=== PATIENT | female | born 1945 | race Caucasian/White ===

== ENCOUNTER 2016-05-31 05:56 | Inpatient (IN) | payer OTHER, BC ==
[2016-05-31] MEDS ORDERED: CEFAZOLIN 2 GM/DEXTR 100 ML IV ONE (06:00)
[2016-05-31] MEDS ORDERED: ACETAMINOPHEN 325 MG TAB PO ONE (06:00)
[2016-05-31] MEDS ORDERED: TRANEXAMIC ACID 3,000 MG in NS 50 ML IRR ONE (06:00)
[2016-05-31] MEDS ORDERED: ROPI/epiNEPH/KETOROLAC JOINT COCKTAIL IU ONE (06:00)
[2016-05-31] MEDS ORDERED: DEXAMETHASONE 4 MG/ML VIAL IVP ONE (06:00)
[2016-05-31] MEDS ORDERED: FAMOTIDINE 20 MG TAB PO ONE (06:00)
[2016-05-31] MEDS ORDERED: CHLORHEXIDINE GLUC HIBICLENS 118 ML BTL TP ONE (06:00)
[2016-05-31] MEDS ORDERED: TRANEXAMIC ACID 3,000 MG/50 ML BAG IRR ONE (06:32)
[2016-05-31] MEDS ORDERED: SKIN ADHESIVE (DERMABOND) 1 EACH TP ONE ×2 (06:32→07:47)
[2016-05-31] MEDS ORDERED: LIDOCAINE 1% 5 ML SDV ONE (06:44)
[2016-05-31] MEDS ORDERED: LIDOCAINE 1% 5 ML SDV ID PRN (06:55)
[2016-05-31] MEDS ORDERED: LR 1,000 ML IV ONE (06:55)
[2016-05-31] MEDS ORDERED: MIDAZOLAM 2 MG/2 ML VIAL ONE (07:01)
[2016-05-31] MEDS ORDERED: PROPOFOL/EMULSION 500 MG/50 ML BOTTLE IV ONE (07:15)
[2016-05-31] MEDS ORDERED: POLYETHYLENE GLYCOL 3350 17 GM PKT PO PRN (08:09)
[2016-05-31] MEDS ORDERED: METOCLOPRAMIDE 10 MG/2 ML VIAL IVP PRN (08:09)
[2016-05-31] MEDS ORDERED: ONDANSETRON 4 MG/2 ML VIAL IVP PRN (08:09)
[2016-05-31] MEDS ORDERED: PROMETHAZINE HCL 25 MG/ML INJ IVP PRN (08:09)
[2016-05-31] MEDS ORDERED: diphenhydrAMINE 25 MG CAP PO PRN (08:09)
[2016-05-31] MEDS ORDERED: PHARMACY PAIN CONSULT 1 EA MISC PRN (08:09)
[2016-05-31] MEDS ORDERED: LACTULOSE 20 GM/30 ML UDCUP PO PRN (08:09)
[2016-05-31] MEDS ORDERED: DIPHENOXYLATE/ATROPINE LOMOTIL 1 TAB PO PRN (08:09)
[2016-05-31] MEDS ORDERED: MAGNESIUM HYDROXIDE 30 ML UDCUP PO PRN (08:09)
[2016-05-31] MEDS ORDERED: TEMAZEPAM 15 MG CAP PO PRN (08:09)
[2016-05-31] MEDS ORDERED: BISACODYL 10 MG SUPP PR PRN (08:09)
[2016-05-31] MEDS ORDERED: PROMETHAZINE HCL 25 MG SUPPR PR PRN (08:09)
[2016-05-31] MEDS ORDERED: LIDOCAINE 2% 5 ML SDV ONE (08:14)
--- NOTE | 2016-05-31 08:32 | POSTOPPROG ---
Post Op Note Date of Operation: 05/31/16 Surgeon: Ezra Howe Felled Seam Operator: hema howe Anesthesiologist: dr. maxwell Anesthesia: Spinal Pre-op Diagnosis: left hip OA Post-op Diagnosis: same Indication: left hip pain due to OA that failed conservative measures Procedure: L JANNETH ant approach Findings: severe hip OA Inf/Abcess present in the surg proc area at time of surgery?: No EBL: 100-500
--- NOTE | 2016-05-31 09:21 | DX ---
Fluoroscopy Provided for Left Hip Surgery 8:15 a.m. Indication: Left total hip arthroplasty Fluoroscopy time: 2.1 seconds. Dose: 0.24 mGy. Technique: Single intraoperative AP spot view. Findings: A left total hip arthroplasty jig is well seated. A sponge overlies the greater trochanter. Impression: Fluoroscopy provided for left total hip arthroplasty.
--- NOTE | 2016-05-31 09:22 | DX ---
Portable Pelvis May 31, 2016 8:55 a.m. Indication: Left total hip arthroplasty. Comparison: Portable pelvis dated January 05, 2016. Findings: A new left total hip arthroplasty is anatomically aligned and well seated. No perihardware fracture or lucency. Expected subcutaneous gas. A right total hip arthroplasty remains well seated. Impression: Good alignment of new left total hip arthroplasty.
[2016-05-31] MEDS: ONDANSETRON DISINTEGRATING 4 MG TAB PO PRN ×2 (11:22→17:37)
[2016-05-31] MEDS: ACETAMINOPHEN 325 MG TAB PO SCH ×3 (11:22→23:53)
[2016-05-31] MEDS: LR 1,000 ML IV SCH ×2 (11:23→23:57)
[2016-05-31] MEDS: SENNOSIDES/DOCUSATE SODIUM TAB PO SCH ×2 (11:45→20:33)
[2016-05-31] MEDS: CYCLOBENZAPRINE 10 MG TAB PO PRN ×2 (11:58→23:52)
[2016-05-31] MEDS: oxyCODONE IR 5 MG TAB PO PRN ×2 (11:58→17:38)
[2016-05-31] MEDS: ceFAZolin 2 GM in D5W 100 ML IV SCH ×2 (13:37→21:51)
[2016-05-31] MEDS ORDERED: ceFAZolin 2 GM/DEXTROSE 100 ML IV SCH (14:00)
--- NOTE | 2016-05-31 19:40 | GOP ---
[f rep st] OPERATIVE REPORT DATE OF OPERATION: 05/31/2016 SURGEON: Jose Olivas MD INTERN: Amber Olivas PA-C ANESTHESIA: Spinal. PREOPERATIVE DIAGNOSIS: Left hip osteoarthritis. POSTOPERATIVE DIAGNOSIS: Left hip osteoarthritis. PROCEDURE PERFORMED: Left total hip arthroplasty with x-ray. FINDINGS: ESTIMATED BLOOD LOSS: 200 cc. INDICATIONS: The patient has progressively worsening arthritis of the hip which has failed medical m anagement. The patient understands the treatment options including continued non-operative care and has selected surgical intervention. The patient has decided to undergo total hip arthroplasty via th e direct anterior approach, understanding the risks of the procedure including, but not limited to, n eurovascular injury, infection, persistent pain, component wear and loosening, deep venous thrombosis , pulmonary embolism, limb length inequality, hip instability (including dislocation), and intra-oper ative fractures. DESCRIPTION OF PROCEDURE: After proper identification of the patient including verification and dottie ing the surgical site, the patient was brought to the operating room and placed in the supine positio n. All bony prominences were well padded. Anesthesia was induced without complication and intraveno us prophylactic antibiotics were administered prior to skin incision. The operative leg was placed in the Trumpf Arch table extension and the well leg in a Yellofin leg ho lder. The patient was prepped and draped in the usual sterile fashion. The C-arm was draped for int ra-operative fluoroscopy to check acetabular position, femoral component position including leg lengt h and femoral offset. Attention was then drawn to surgical exposure of the hip. An incision was made with a #10 Bard Tomasa r blade starting 3 cm lateral and 3 cm distal to the anterior superior iliac spine measuring 8-10 cm and coursing distally toward the greater trochanter. The skin and subcutaneous tissues were divided sharply down to the fascia irene. The fascia irene was incised in line with the skin incision exposing the underlying tensor fascia irene muscle. The muscle was bluntly elevated from the fascia and the f irst extracapsular Cobra retractor was placed laterally at the junction of the superior femoral neck and greater trochanter. The lateral femoral circumflex vessels were identified, cauterized, and divi ded with the Aquamantys bipolar cautery. The deep investing fascia of the TFL was divided to allow p doris mobilization of the muscle preventing damage during the retraction. The reflected head of the rectus femoris muscle was elevated off the anterior hip capsule and a medial Cobra retractor was plac ed just proximal to the lesser trochanter. The anterior capsulotomy was made sharply from the superolateral acetabulum to the saddle junction of the superior femoral neck and greater trochanter, then coursing inferomedial towards the lesser troc hanter. The retractors were then placed in the intracapsular position for femoral neck osteotomy. C orresponding to pre-operative templating, the osteotomy was made with the oscillating saw carefully p rotecting the greater trochanter and soft tissues. The femoral head was removed from the acetabulum with a corkscrew and confirmed to be severely arthritic with exposed bone, deformity and osteophytes. Similar findings were confirmed in the acetabulum. The Arch table extension was then placed in 40 degrees external rotation. Attention was then drawn to the acetabular preparation. After placement of the anterior and posterio r Cobra retractors outside the labrum and intracapsular, the circumferential labrum was removed sharp ly. The foveal contents were then removed and hemostasis obtained with cautery. The first reamer selected was sized using the removed femoral head. Reaming began with medialization and then commenced in 2 mm increments at 45 degrees of abduction and 15 degrees of anteversion using fluoroscopic navigation. Reaming ceased 1 mm less than the definitive acetabular component and pranav esponded to the pre-operative templating. The final acetabular component was inserted using fluorosc opy to achieve proper orientation yielding excellent purchase and stability in the acetabulum. The f inal acetabular liner was then placed and its seating confirmed. Attention was then turned to the femur. The Arch table extension was placed in extension and adducti on, delivering the osteotomized femoral neck into the wound. A 2-pronged femoral elevator was placed at the calcar and another at the tip of the greater trochanter. The posterolateral capsule was rele ased with cautery allowing mobilization of the femur lateral and anterior for preparation. The exter nal rotators were visualized and preserved. A curette and rongeur were used to open the starting poi nt for broaching. Serial broaching started with the #0 broach and ended with the broach that exhibit ed excellent fit in the proximal femur. A change in pitch during mallet strikes was accompanied by t he inability to advance the broach any further. The trial reduction was performed and fluoroscopic n avigation was utilized to check limb length. Adjustments were made to equalize limb length according ly. After the final trials were accepted they were removed and the wound was copiously lavaged. The femo ral component was seated to the same depth as the final broach and the femoral head was impacted onto the clean trunnion. The hip was then reduced for the final time and once more fluoroscopy was used to check that limb length equality was achieved. The wound was irrigated and closed in layers, the fascia irene with 2-0 Quill, the subcutaneous tissue with 2-0 Quill, and the skin with Dermabond. Sterile dressings were applied. Final sharps and spon ge counts were accurate. The patient was then transferred to a hospital bed and brought to the [facility] room in stable condition. IMPLANTS: Accolade II size 5 x 127, acetabular component 52 mm Titanium, the liner is a Trident X3 3 6 mm, the head is a Biolox Delta 36 mm -2.5. /[id number]/MODL
[2016-05-31] MEDS: FAMOTIDINE 20 MG TAB PO SCH (20:33)
[2016-05-31] MEDS: ASPIRIN 325 MG TAB PO SCH (20:33)
[2016-06-01] MEDS: ACETAMINOPHEN 325 MG TAB PO SCH (04:56)
[2016-06-01 05:31] LABS: HEMATOCRIT 33.4 % (38.0-47.0); HEMOGLOBIN 10.8 g/dL (12.6-16.3)
[2016-06-01 07:43] VITALS: BP 98/51; PULSE 69; RESP 16; TEMP 98; O2SAT 94
[2016-06-01] MEDS: ASPIRIN 325 MG TAB PO SCH (09:36)
[2016-06-01] MEDS: FAMOTIDINE 20 MG TAB PO SCH (09:36)
[2016-06-01] MEDS: SENNOSIDES/DOCUSATE SODIUM TAB PO SCH (09:36)
--- NOTE | 2016-06-01 09:44 | SOAPPROG ---
SOAP Progress Note Assessment/Plan: Assessment: Patient is doing well POD 1 s/p L JNANETH 1.Pain management: pain is well controlled on oral pain meds 2.Anemia: level is expected initially postop. Asymptomatic. Cont to monitor for symptoms 3.VTE ppx: recommend aspirin 325mg daily. Cont ADIS greenberg and SCD 4. d/c planning: d/c to home today pending release from PT. Plan: 06/01/16 09:43 Subjective: Kellie is doing well today, denies SOB, chest pain and N/v. states overall she is feeling great and much better than initially postop R JANNETH. Objective: Vital Signs Temp Pulse Resp BP Pulse Ox 36.6 C 69 16 98/51 L 94 06/01/16 07:41 06/01/16 07:41 06/01/16 07:41 06/01/16 07:41 06/01/16 07:41 Laboratory Results 06/01/16 05:18 05/31/16 06/01/16 06/02/16 05:59 05:59 05:59 Intake Total 3405 Output Total 1865 Balance 1540 LLE:incision dressing is clean and dry, NVI, +pf/df ICD10 Worksheet Patient Problems: Problems Problem Status Diagnosed Primary localized osteoarthritis of left hip Acute
--- NOTE | 2016-06-01 10:32 | GDS ---
[f rep st] DISCHARGE SUMMARY ADMISSION DIAGNOSIS: Left hip osteoarthritis. DISCHARGE DIAGNOSIS: Left hip osteoarthritis. PROCEDURE: Left total hip arthroplasty. VTE PROPHYLAXIS: Aspirin recommended for 3 weeks daily. BRIEF DESCRIPTION OF HOSPITAL STAY: Patient was admitted for an elective joint arthroplasty. The pa tient tolerated the procedure well and has passed physical therapy. The patient was given appropriat e antibiotic prophylaxis and venous thromboembolism prophylaxis. The patient's pain was well control led on oral pain medication, patient was holding down food, and had urinated. Decision was made to d ischarge the patient. The patient was given post-operative prescriptions pre-operatively. PLAN: Please follow up as scheduled on June 22, 2016 at 10:[address] Olivas's office. /[id number]/MODL
== END 2016-06-01 10:56 | disposition home or self-care (01) | DRG 470 ==
LOC: F3N 05:56
PROVIDERS: ADMIT Orthopaedic Surgery; ATTEND Orthopaedic Surgery
PROC: 0SRB04Z Replacement of Left Hip Joint with Ceramic on Polyethylene Synthetic Substitute, Open Approach (ICD-10-PCS; principal; 2016-05-31 07:15)
DX: M16.12 Unilateral primary osteoarthritis, left hip (principal)
CPT/HCPCS: 97116-GP; 97161-GP; G8978-GP-CJ; G8979-GP-CI; G8980-GP-CI; J0171; J0690; J1100; J1885; J2250; J2704; J2795

== ENCOUNTER → 2016-07-07 | Outpatient (CLI) | payer OTHER, BC | LOC: BMCIMAGING 10:40 | DX: Z12.31 Encounter for screening mammogram for malignant neoplasm of breast (principal) | CPT/HCPCS: G0202 ==

== ENCOUNTER → 2018-03-12 | Outpatient (CLI) | payer OTHER, BC | LOC: BMCIMAGING 14:57 | PROVIDERS: ATTEND Internal Medicine | DX: M81.0 Age-related osteoporosis without current pathological fracture (principal); Z96.643 Presence of artificial hip joint, bilateral ==